=== PATIENT | male | born 2000 | race Caucasian/White ===

== ENCOUNTER 2020-02-15 12:10 | Outpatient (NON) | payer BC, SELFPAY ==
[2020-02-15 20:05] LABS: SARS-CoV-2 RNA PCR Negative
== END 2020-02-15 12:11 ==
PROVIDERS: PCP Physician Assistant; Visit Provider Physician Assistant
DX: R53.81 Other malaise (principal); Z20.828 Contact with and (suspected) exposure to other viral communicable diseases
CPT/HCPCS: 87635; C9803; U0003